=== PATIENT | male | born 1955 | race Caucasian/White ===

== ENCOUNTER 2021-11-29 09:07 | Outpatient (CLI) | payer MEDICARE, OTHER, SELFPAY ==
--- NOTE | 2021-11-29 09:20 | RAD_ITS ---
STUDY: XR Chest 2 Views 11/29/2021 9:24 AM REASON FOR EXAM: Male, 66 years old. PREOP COMPARISON: None TECHNIQUE: XR Chest 2 Views FINDINGS: There is no demonstrated pleural abnormality. Normal heart size. Normal mediastinum. Normal dmitri. Prominent appearing increased interstitial lung markings. Normal visualized pulmonary arteries. There is atherosclerotic calcification of the aortic arch with tortuosity. There are diffuse degenerative changes of the visualized thoracic spine. There is degenerative osteoarthritis of the bilateral shoulders. There is no demonstrated abnormality of the visualized soft tissue structures of the upper abdomen. RAD/Chest PA and Lateral IMPRESSION: There are no acute findings. Electronically Signed: Geovani Heller MD at 16:49 EDT ,
== END 2021-11-29 23:59 | disposition home or self-care (01) ==
LOC: RAD 09:08
PROVIDERS: PCP Nurse Practitioner Primary Care; Referring Provider Orthopaedic Surgery; Visit Provider Orthopaedic Surgery
DX: Z01.811 Encounter for preprocedural respiratory examination (principal)
CPT/HCPCS: 71046

== ENCOUNTER 2021-12-02 11:25 | Day surgery (SDC) | payer MEDICARE, OTHER, SELFPAY ==
--- NOTE | 2021-11-22 22:19 | PCM.HP.BLA ---
History and Physical History and Physical [facility] Patient Name: Angel Nicole : 1955 From: ANGELO MORGAN PA-C DATE OF SURGERY: 12/02/2021 SCHEDULED PROCEDURE: Lumbar 4 laminectomy/decompression HISTORY OF PRESENT ILLNESS: Preoperative history and physical exam was performed on November 22, 2021. This is a 66-year-old male who has had ongoing pain for over 15 years. He states it is been progressively been getting worse over the past 1-2 years. Patient has increased pain in the lumbar sacral region worse with activity and improved with rest. He gets paresthesias radiating into bilateral lower extremities. He denies any previous history of back surgeries or injuries. He has not had any previous injections. He denies any loss of bowel or bladder control. He has tried physical therapy and chiropractic treatments with no relief. He has tried home exercises without relief. Patient has tried nonsteroidal anti-inflammatory with minimal relief. He has been through MRI of the lumbar spine with lumbar degenerative disc disease and stenosis. There are degenerative changes at multiple levels but most severe at L4-L5. His symptoms are now beginning to affect his normal activities of daily living. After failing conservative measures and discussing all treatment options with Dr. Angel Blum, the patient would like to proceed with a lumbar 4 laminectomy/decompression. Patient currently denies any chest pain, shortness of breath, fevers chills or recent infections. Patient has had surgical clearance from the primary care provider Marycruz Feldman and Dr. Szymanski. Patient does have previous history of lung cancer which is in remission. Has medical history pertinent for chronic obstructive pulmonary disease and thyroid disease. REVIEW OF SYSTEMS: ROS: Const: Denies change in appetite, fever and weight change. CV: Denies chest pain, heart murmur and irregular heartbeat. Resp: Reports cough and shortness of breath, but denies pneumonia, tuberculosis and wheezing. GI: Reports dysphagia, but denies constipation, diarrhea, heartburn, nausea, rectal itching, bloody stools and vomiting. : Denies incontinence. Musculo: Reports trouble walking, but denies leg swelling, pain and weakness. Skin: Denies Raynaud's, history of shingles and tattoo. Neuro: Reports numbness/tingling but denies ambulatory dysfunction, dizziness and tremor. Psych: Reports insomnia, but denies anxiety and stress. Gianni/Lymph: Denies anemia, bleeding/bruising tendency and past transfusion. Reviewed, no changes. 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 SOCIAL HISTORY: SH: Marital: .Occupation: Retired.Work Status: Retired.Hand Dominance: Right-handed. Personal Habits: Cigarette Use: Patient was a cigarette smoker, current status is unknown.Smokeless Tobacco: Never Used Smokeless Tobacco.E-Cigarette Use: Never used.Alcohol: Weekly use.Drug Use: Denies Use.Enjoy Exercising: Never Exercises. Reviewed, no changes. VITALS: Ht: 67.8 Wt: 207lb 2oz Wt k.952 BMI: 31.7 BP: 116/72 Pulse: 99 Resp: 20 T: 97.4 T: 36.3C Pain Level: 5 O2SatR: 98 ALLERGIES: No Known Drug Allergy MEDICATIONS: Oxycodone HCL 5 mg 1-2 tab by mouth every 6 hours, Levothyroxine Sodium 50 mcg 1po qday, Advair Diskus 250-50 mcg/Dose 1 puff twice daily, Albuterol Mdi 90 mcg/Act 1 puff by mouth daily, Multi Vitamin take 1 tablet by mouth once daily., Proair Digihaler 108 (90 Base) mcg/Act as needed PRE-OP EXAM: General appearance:NORMAL Other: Eyes: Conjunctivae and lids: NORMAL Pupils: ERR Ears, Nose, Mouth, and Throat: NORMAL Other: Inspection of lips, teeth and gums: NORMAL Other: Neck: Examination of neck: no masses noted. Respiratory: Assessment of respiratory effort: NORMAL Other: Auscultation of lungs: clear to auscultation no wheezes, rhonchi or rales. Cardiovascular: Auscultation of heart: regular rate and rhythm, no murmurs, gallops or rubs. PHYSICAL EXAMINATION: On exam patient walks with a slight limping gait. He has minimal tenderness to palpation over the lumbar paraspinals. Patient has decreased strength with toe extension and ankle plantar flexion 5-/5. Remaining strength testing 5/5. Patient does have diminished reflexes of the patella bilaterally. Achilles reflexes are diminished bilaterally. Patient does complain of numbness and tingling in bilateral lower extremities. IMAGING STUDIES: Previous MRI and x-rays of the lumbar spine reveal degenerative changes at multiple levels with associated stenosis with most severe at L4-L5. IMPRESSION: 1. Lumbar degenerative disc disease with stenosis most severe at L4-L5 2. Thyroid disease 3. Chronic obstructive pulmonary disease 4. History of lung cancer: Currently in remission PLAN: Dr. Angel Blmu did discuss and review with the patient all treatment options including surgical versus nonsurgical options. Patient does wish to proceed with the above-stated procedure. Potential risks, benefits, and complications of the procedure were discussed in detail including but not limited to , infection, nerve and blood vessel damage, persistent pain, numbness, tingling, paresthesias, blood clot, pulmonary embolism, and requirement for possible further surgery. The patient expressed full understanding and has no further questions for the doctor. Patient does agree to proceed with the above-stated procedure and has signed the surgery consent form. We discussed the current risks associated with COVID 19. This does include the risk of exposure while in the hospital. Patient was reassured local hospitals have low infection rates and are taking all necessary precautions to avoid exposure to patients. In addition, we discussed strategies that can be used to help limit exposure including those that limit the patient's time in the hospital. Also using strategies to limit the patient's need for continued inpatient services after being discharged from the hospital. Patient was notified that we will need to comply with any screening or testing the hospital wishes to perform or that surgery may be delayed for any positive results. Patient denies any previous history of DVT or pulmonary embolism. We discussed postoperative course of treatment in which there'll be no repetitive bending, twisting or lifting greater than 5 pounds for 3 weeks postoperatively. Patient will follow postoperatively with Dr. Angel Blum 3 weeks. Plan will be to also begin physical therapy after 3 weeks. Discussed with the patient no use of nonsteroidal anti-inflammatories preoperatively 5 days before surgery and postoperatively 3 weeks. This dictation was created using voice recognition software. Phonetic and/or grammatical errors may exist. ___ I have re-examined the patient. There are no clinical changes since date of exam. ___ See progress notes for changes. ___ Dictated on admission Date: Time: Signature:
[2021-11-25 09:45] LABS: Prothrombin Time (Protime)PT. 12.2 SECONDS (11.7-14.9)
[2021-11-25 09:46] LABS: Partial Thromboplast Time 26.7 Seconds (24.1-36.2)
[2021-11-25 10:12] LABS: Thyroid Stim Hormone (TSH) 2.39 uIU/mL (0.358-3.74)
[2021-12-02] VITALS (8 sets, daily range): BP systolic 113–136; BP diastolic 83–98; PULSE 70–117; RESP 10–18; TEMP 36.2–36.4; O2SAT 90–97; BMI 30.8
[2021-12-02] MEDS: Lactated Ringers 1,000 ML 15 ML IV ×2 (11:50→16:50)
--- NOTE | 2021-12-02 13:58 | OP.PCM_ITS ---
Problems Associated Problem List Diagnoses (1) Lumbar stenosis: Report of Operation Date of Procedure: 12/02/21 Pre-Operative Diagnosis: 1. Lumbar stenosis L4-5 with spondylosis 2. Lumbar degenerative disc disease L4-5 Post-Operative Diagnosis: 1. Lumbar stenosis L4-5 with spondylosis 2. Lumbar degenerative disc disease L4-5 Surgery/Procedure Performed:: 1. L4 laminectomy decompression 2. L4-5 bilateral foraminotomies, decompression of nerve roots Description of Surgical Findings:: The patient is a 66-year-old male with intractable back and leg pain. Image studies confirm the above diagnoses. He has failed conservative treatment to include medication, physical therapy and injections. The patient opted for operative intervention understanding the risk to include but not limited to infection, bleeding, damage to nerves arteries and veins, possibility of spinal fluid leak, continued pain, need for further surgery, deep vein thrombosis, pulmonary embolism, heart attack, risk of stroke or The patient was identified in the preoperative holding area. There he received preoperative IV antibiotics, Ancef, and was then transferred to the operative suite. Once in the operative suite after general endotracheal anesthesia was established, the patient was transferred to the [place] operating table in the prone position. All bony prominences were padded accordingly. The lumbar spine was prepped and draped in a standard surgical fashion. Bear hugger's were not turned on until the drapes were placed and sealed with Ioban. A midline incision was made and taken to the lumbodorsal fascia. The fascia was divided and subperiosteal dissection was taken down to the level of the bilateral L4-5 facet joints. Deep retractors were placed. A bone scalpel was used to make cuts in the lamina at L4 and then a series of rongeurs and Kerrisons was used removing the spinous process and lamina at L4. Then bilateral foraminotomies were performed decompressing the bilateral nerve roots. The incision was then thoroughly irrigated. Tisseel was placed over the dura as a hemostatic agent. The fascia was closed with #1 Vicryl, subcutaneous with 2-0 Vicryl, and skin with 2-0 nylon. A sterile dressing was applied with 4 x 4's ABD and tape. Sponge instrument needle counts were correct at the end of the case. The patient was extubated and taken to the PACU without incident. Surgeon: Angel Blum Type of Anesthesia: General Drains: None Estimated Blood Loss (mL): 10 cc Fluids Replaced: 1000 cc Grafts/Implants Used: None Complications None Admit VTE Documentation VTE Present on Admission: No
--- NOTE | 2021-12-02 13:58 | PCM.PN.ORT ---
Subjective Subjective The patient was seen postoperatively in the PACU. He is lying in bed resting comfortably. His pain is controlled. He denies any complaints including numbness tingling or weakness Objective Data Objective Data Vital Signs: Vital Signs Temp Pulse Resp BP Pulse Ox 97.4 F L 117 H 18 117/90 H 96 12/02/21 12:03 12/02/21 12:03 12/02/21 12:03 12/02/21 12:03 12/02/21 12:03 Oxygen Delivery Method Room Air Weight: 202 lb 9.677 oz Body Mass Index (BMI) 30.8 Physical Exam Const alert, oriented x3 and no apparent distress General Appearance: cooperative and comfortable HEENT normocephalic and head/scalp atraumatic Eyes EOMs intact bilaterally and conjunctivae normal Neck full ROM General: normal visual inspection Chest inspection of chest normal and palpation of chest normal Resp normal respiratory effort and normal air movement Cardio regular rate, regular rhythm and peripheral pulses 2+ throughout GI soft to palpation, non-tender and non-distended Back/Spine Back/Spine Narrative: Dressing clean dry and intact Cervical Spine: cervical ROM normal Thoracic Spine / Upper Back: normal to inspection Lumbar Spine / Lower Back: normal to inspection Extremity normal to inspection, full ROM, normal capillary refill, no clubbing, cyanosis or edema and no calf tenderness Peripheral Pulses: Yes pulses 2+ throughout Skin no rashes or lesions noted General Skin Exam: no breakdown Neuro oriented x3, CN's II-XII intact bilaterally, moves all extremities, no focal motor deficits, no sensory deficits noted and deep tendon reflexes 2+ bilaterally Motor Exam: strength 5/5 throughout and muscle tone normal throughout Assessment & Plan Assessment/Plan (1) Lumbar stenosis: PLAN: Okay to discharge home See discharge instructions Follow-up with Dr. Blum in 3 weeks for suture removal
[2021-12-02] MEDS: Cefazolin 2 GM in 0.9% Normal Saline 100 ML IV (14:31)
--- NOTE | 2021-12-02 14:55 | RAD_ITS ---
STUDY: INTRAOPERATIVE FLUOROSCOPY TECHNIQUE: The examination was performed with referring physician in attendance. Under fluoroscopic observation, fluoroscopic images were obtained. Radiologist was not present for the study. Radiologist did not perform the procedure. This dictation is for documentation of the radiation dosage only. There is no interpretation of the images. TOTAL NUMBER OF IMAGES: 1 COMPARISON: None RADIATION DOSE: 10.8 mGy FLUOROSCOPY TIME: 7.5 seconds REASON FOR EXAM: L4 LAMINECTOMY, DECOMPRESSION Male, 66 years old. FINDINGS: Surgical instrument points at the level of L3-4 RAD/Lumbar Spine 2 or 3 Views IMPRESSION: Fluoroscopic assistance images were obtained. Dictation for documentation purposes only. Electronically Signed: Geovani Heller MD at 18:43 EDT ,
[2021-12-02] MEDS: THROMBIN (RECOMBINANT) 20,000 UNIT VIAL 20000 UNIT TOPICAL (16:44)
== END 2021-12-02 23:59 | disposition home or self-care (01) ==
LOC: SDC 11:25 → AC 11:28
PROVIDERS: PCP Nurse Practitioner Primary Care; Referring Provider Orthopaedic Surgery; Visit Provider Orthopaedic Surgery
PROC: (CPT 63030; principal; 2021-12-02 13:00)
DX: M48.061 Spinal stenosis, lumbar region without neurogenic claudication (principal); J44.9 Chronic obstructive pulmonary disease, unspecified; M51.36 Other intervertebral disc degeneration, lumbar region; E07.9 Disorder of thyroid, unspecified; Z85.118 Personal history of other malignant neoplasm of bronchus and lung; Z79.890 Hormone replacement therapy; Z79.899 Other long term (current) drug therapy; M19.90 Unspecified osteoarthritis, unspecified site; M47.816 Spondylosis without myelopathy or radiculopathy, lumbar region; Z86.2 Personal history of diseases of the blood and blood-forming organs and certain disorders involving the immune mechanism
CPT/HCPCS: 63047; 00630; 36415; 72100; 76000; 84443; 85610; 85730; J7120

== ENCOUNTER → 2023-11-27 | Outpatient (CLI) | payer MEDICARE, OTHER, SELFPAY ==
--- NOTE | 2023-11-27 08:08 | EKG12_ITS ---
Test Reason : PREOP Blood Pressure : / mmHG Vent. Rate : 101 BPM Atrial Rate : 101 BPM P-R Int : 168 ms QRS Dur : 096 ms QT Int : 386 ms P-R-T Axes : 065 011 047 degrees QTc Int : 500 ms Sinus tachycardia with frequent Premature ventricular complexes Otherwise normal ECG Confirmed by Chang Gregory ([id number]), medical editor BONY YOST ([id number]) on 11/27/2023 11:05:46 AM Referred By: Angel Blum Confirmed By:Chang Gregory
--- NOTE | 2023-11-27 08:08 | RAD_ITS ---
EXAM: XR CHEST, 2 VIEWS CLINICAL INDICATION: PREOP TECHNIQUE: Frontal and lateral views of the chest. COMPARISON: XR Chest dated 11/29/2021 FINDINGS: LUNGS AND PLEURAL SPACES: Hyperinflation suggesting emphysema. No pulmonary consolidation. No pleural effusion or pneumothorax. HEART: Normal heart size. MEDIASTINUM: No mediastinal or hilar mass. BONES/JOINTS: No acute abnormality. RAD/Chest PA and Lateral IMPRESSION: No acute cardiopulmonary abnormality. COPD. No interval change. Electronically Signed: Joe Herrera MD at 9:14 EDT ,
[2023-11-27 08:11] LABS: Absolute Lymphocyte Count 1.67 X10^3/uL (0.83-4.51); Absolute Neutrophil Count 5.4 X10^3/uL (2.0-7.7); Basophil# 0.05 X10^3/uL; Basophil% 0.6 % (0-1); Eosinophil# 0.26 X10^3/uL; Eosinophils% 3.3 % (0-5); Hematocrit 42.9 % (40-54); Hemoglobin 13.8 g/dL (13.0-16.5); Lymphocyte # 1.67 X10^3/ul (0.83-4.51); Lymphocyte % 20.9 % (19-41); Mean Corp Hgb Conc 32.2 g/dL (32-36); Mean Corpuscular Hgb 29.2 pg (27.0-32.0); Mean Corpuscular Volume 90.9 fL (80-94); Mean Platelet Vol. 9.9 fl (6.2-12.0); Monocyte# 0.58 X10^3/uL; Monocyte% 7.3 % (0-10); NRBC Flagged by Analyzer 0 % (0-5); Neutrophil # 5.38 X10^3/uL (2.7-7.7); Neutrophil % 67.4 % (47-70); Platelet Count 269 K/mm3 (150-450); Red Blood Count 4.72 M/mm3 (4.6-6.2)
[2023-11-27 08:22] LABS: International Normalized Ratio 0.9; Prothrombin Time (Protime)PT. 12.4 SECONDS (11.7-14.9)
[2023-11-27 08:23] LABS: Partial Thromboplast Time 26.3 Seconds (24.1-36.2)
[2023-11-27 08:43] LABS: Anion Gap 7 (5-15); BUN 26 mg/dL (7-18); BUN/Creat Ratio 25.2 RATIO (10-20); Calcium,Total 8.7 mg/dL (8.5-10.1); Chloride 108 mmol/L (98-107); Creatinine, Serum 1.03 mg/dL (0.70-1.30); EST Glomerular Filtration Rate 76 mL/min (>60); Est Glom Filt Rate - Afr Amer 92 mL/min (>60); Glucose 107 mg/dL (74-106); Potassium 3.9 mmol/L (3.5-5.1); Sodium Level 140 mmol/L (136-145)
[2023-11-27 08:57] LABS: Thyroid Stim Hormone (TSH) 3.06 uIU/mL (0.358-3.74)
== END | disposition home or self-care (01) ==
PROVIDERS: Anesthesiology; PCP Nurse Practitioner Primary Care; Referring Provider Orthopaedic Surgery; Visit Provider Orthopaedic Surgery
DX: Z01.818 Encounter for other preprocedural examination (principal); Z01.811 Encounter for preprocedural respiratory examination; Z01.810 Encounter for preprocedural cardiovascular examination
CPT/HCPCS: 36415; 71046; 80048; 84443; 85025; 85610; 85730; 93005

== ENCOUNTER 2023-12-07 07:18 | Observation (INO) | payer MEDICARE, OTHER, SELFPAY ==
[2023-12-07] VITALS (18 sets, daily range): BP systolic 96–154; BP diastolic 49–94; PULSE 77–110; RESP 16–20; TEMP 36.1–36.8; O2SAT 89–99; BMI 31.5
[2023-12-07] MEDS: Lactated Ringers 1,000 ML 15 ML IV (06:25)
[2023-12-07] MEDS: Ipratropium/Albuterol Sulfate 3 ML AMPUL.NEB INHALATION ×2 (06:37→17:27)
--- NOTE | 2023-12-07 07:06 | PCM.OPRPT ---
Report of Operation Date of Procedure: 12/07/23 Description of Surgical Findings:: REPORT OF OPERATION PREOPERATIVE DIAGNOSES: 1. Lumbar stenosis, spondylosis. 2. Chronic back pain. 3. Postlaminectomy syndrome POSTOPERATIVE DIAGNOSES: 1. Lumbar stenosis, spondylosis. 2. Chronic back pain. 3. Postlaminectomy syndrome PROCEDURE PERFORMED: 1. T9-10 partial bilateral laminectomies. 2. Dorsal column stimulator paddle lead placement. 3. Neuro monitoring bilateral upper and lower extremities 4. One hour of complex programming postoperatively. STATEMENT OF MEDICAL NECESSITY: This patient is a 68-year-old male with intractable back and leg pain. The patient has opted for treatment of operative intervention, understanding the risks to include infection, bleeding, damage to nerves, arteries and veins, possibility of continued pain, paralysis, need for additional surgery, pulmonary embolism, heart attack, stroke, or . DESCRIPTION OF PROCEDURE: The patient was identified in the preoperative holding area. There, the patient received the preoperative IV antibotics and then transferred to the operating suite. Once in the operating suite, after general endotracheal anesthesia was established, the patient was transferred to the [place] operating table in the prone position. All bony prominences were padded accordingly. The thoracolumbar spine was prepped and draped in standard surgical fashion. Incision was made over the thoracolumbar spine. An incision was centered over the T9-10 interlaminar space, taken down to the thoracic fascia. It was then divided and subperiosteal dissection was taken down to the level of the facet joints. Partial bilateral laminectomies were performed at the T9-10 interspace, with part of the inferior lamina of T9, and superior lamina of T10. At this point the paddle lead was placed spanning from T8 inferiorly. It was then anchored to the fascia using standard anchors with silk suture. A second incision was made over the right posterior iliolumbar region as a battery pocket. Wires from the stimulator were then passed subcutaneously with a passing device to the battery pocket. Extension wires were then connected and passed percutaneously at the skin in the left posterior iliolumbar region. Both incisions were then irrigated and closed with #1 vicryl for the fascia, 2-0 vicryl for subcutaneous, and 2-0 nylon for skin. Sterile dressing was applied with 4 x 4, ABD, and tape. Sponge, instrument, and needle counts were correct at the end of the case. Neuromonitoring was maintained at baseline throughout the duration of the case. The patient was extubated, taken to PACU without incident. Then one hour was spent with complex programming when the patient recovered Surgeon: Angel Blum Type of Anesthesia: General Estimated Blood Loss (mL): 20 cc Fluids Replaced: 1800 cc Grafts/Implants Used: [employer] Complications None Admit VTE Documentation VTE Present on Admission: No
--- NOTE | 2023-12-07 07:10 | PN.ORTHO_ITS ---
Subjective Subjective Seen and examined postop. Resting comfortably. Pain controlled. No complaints Objective Data Objective Data Vital Signs: Vital Signs Temp Pulse Resp BP Pulse Ox O2 Del Method 97.7 F L 100 16 128/86 H 95 Room Air 12/07/23 06:18 12/07/23 06:18 12/07/23 06:18 12/07/23 06:18 12/07/23 06:18 12/07/23 06:18 Oxygen Delivery Method Room Air Weight: 207 lb 3.752 oz Body Mass Index (BMI) 31.5 Physical Exam Const alert, oriented x3 and no apparent distress General Appearance: cooperative, comfortable and well kempt HEENT normocephalic and head/scalp atraumatic Eyes EOMs intact bilaterally and conjunctivae normal Neck full ROM General: normal visual inspection Chest inspection of chest normal and palpation of chest normal Resp normal respiratory effort and normal air movement Cardio regular rate, regular rhythm and peripheral pulses 2+ throughout GI soft to palpation, non-tender and non-distended Back/Spine Back/Spine Narrative: Dressings clean dry and intact Cervical Spine: cervical ROM normal Thoracic Spine / Upper Back: normal to inspection Lumbar Spine / Lower Back: normal to inspection Extremity normal to inspection, full ROM, normal capillary refill, no clubbing, cyanosis or edema and no calf tenderness Skin no rashes or lesions noted General Skin Exam: no breakdown Neuro oriented x3, CN's II-XII intact bilaterally, moves all extremities, no focal motor deficits, no sensory deficits noted and deep tendon reflexes 2+ eleonora aterally Motor Exam: muscle tone normal throughout Assessment & Plan Assessment/Plan (1) Lumbar spondylosis: PLAN: Okay to admit for observation See orders Discharge planning likely home tomorrow
--- NOTE | 2023-12-07 07:11 | PCM.DC.SUM ---
Providers Date of Admission: 12/07/23 Primary Care Physician: DILLON JESSICA Reason For Visit: Insertion, Spinal Cord Stim,Trial Diagnosis Discharge Diagnosis (1) Lumbar spondylosis: Status: Acute Code(s): M47.816 - Spondylosis without myelopathy or radiculopathy, lumbar region Plan: Okay to admit for observation See orders Discharge planning likely home tomorrow Medications at Discharge Home Medications multivitamin 1 tab PO DAILY 11/22/21 albuterol sulfate 90 mcg/actuation aerosol inhaler (ProAir HFA) 1 inh inhalation Q4H PRN PRN shortness of breath or wheezing 11/23/23 atorvastatin 40 mg tablet 40 mg PO DAILY 11/23/23 fluticasone fur. 100 mcg-umeclid 62.5 mcg-vilant 25 mcg inhalat.powder (Trelegy Ellipta) 1 ea inhalation DAILY 11/23/23 levothyroxine 75 mcg tablet 75 mcg PO DAILY 11/23/23 hydrocodone-acetaminophen 5-325mg 5mg-325mg 1 tab PO Q6H 7 days #28 tabs 12/07/23 Hospital Course Operations - (T9-10 laminectomy with implantation of spinal cord stimulator trial lead) Summary of Care Provided Minutes Spent on Discharge: 15 Hospital Course: The patient is a 68-year-old male who underwent T9-10 laminectomy with implantation of spinal cord stimulator trial lead on 12/07/2023. He was subsequently admitted. The hospitalist was consulted for medical management. The patient progressed well. His pain was controlled and he was mobilizing well. No significant medical issues were reported. He was subsequently discharged home on 12/08/2023 to follow-up with Dr. Blum in 1 week Physical Exam Const alert, oriented x3 and no apparent distress General Appearance: cooperative, comfortable and well kempt Neck full ROM General: normal visual inspection Chest inspection of chest normal and palpation of chest normal Resp normal respiratory effort and normal air movement Effort and Inspection: able to speak in complete sentences Cardio regular rate, regular rhythm and peripheral pulses 2+ throughout GI soft to palpation, non-tender and non-distended Back/Spine Back/Spine Narrative: Dressings clean dry and intact Cervical Spine: cervical ROM normal Thoracic Spine / Upper Back: normal to inspection Lumbar Spine / Lower Back: normal to inspection Extremity normal to inspection, full ROM, normal capillary refill, no clubbing, cyanosis or edema and no calf tenderness Skin no rashes or lesions noted General Skin Exam: no breakdown Neuro oriented x3, CN's II-XII intact bilaterally, moves all extremities, no focal motor deficits, no sensory deficits noted and deep tendon reflexes 2+ bilaterally Motor Exam: strength 5/5 throughout and muscle tone normal throughout Weight / BMI Weight Weight: 207 lb 3.752 oz Body Mass Index (BMI) 31.5 D/C Instructions Discharge Diet: No restrictions Additional Activity Instructions: No repetitive bending twisting or lifting greater than 5 pounds Call your doctor if your incision/area has: Continuous Slow Oozing, Sudden Increased Bleeding, Increased Pain/ Swelling, Increased Redness, Foul Smelling Discharge and Swelling at the incision site Call your doctor if you observe: Fever of 101 or Higher, Coldness, Increased Pain, Numbness or Tingling, Change in Color, Inability to urinate, Inability to have a bowel movement, Using more than 1 pad per hour, Shortness of breath, Dizziness, Fainting spells, Swelling in the ankles, Chest pain, Prolonged hiccupping, Increased palpitations (irregular heartbeat), Calf discomfort and Uncontrolled pain Additional Dressing/Incision Instructions: Keep dressing clean dry and intact. Do not remove dressing. Reinforce dressing as needed Additional Instructions: 1. During your procedure, you received sedation through your IV. Please follow these instructions for the next 24 hours: Do not drive a motor vehicle, do not drink any alcoholic beverages, and do not sign any legal documents or make personal or business decisions. A responsible adult should stay with you at least 6 hours after the procedure. 2. Keep your surgical site/incision clean and the dressing dry and intact. Do not remove dressing. You may use an ice pack at the surgical site to reduce any swelling or discomfort. 3. Monitor the incision site for any signs or symptoms of infection. Watch for redness, excessive swelling or drainage, or continued pain at the incision site after 3 days. Contact your physician immediately for a fever, chills or a temperature of 101.5? F or greater. 4. Take your medication exactly as prescribed by your physician. Do not attempt to wean yourself off any of your medications even though your pain is improving. This process needs to be carefully monitored by your doctor. Take any antibiotics prescribed exactly as directed and until they are gone. 5. Avoid stretching, bending, pulling, twisting or any sudden movements. Do not bend or twist at the waist. 6. No lifting greater than 5 pounds. 7. Do not operate a motor vehicle, equipment or a power tool while taking pain medication 8. Do not have any manipulation done by a chiropractor or any other physician without first consulting with the surgeon 9. Please contact our office if you are even scheduled for a CT scan or an MRI. 10. Please call us if you have any questions, problems or concerns. Please Follow Up With: Angel Blum, Meaningful Use Info Meaningful Use Meaningful Use Diagnoses (Choose all that apply): None applicable Ischemic Stroke Statin Dosing Therapy Reference: STATIN DOSE THERAPY REFERENCE: * Patients > 75 years receive moderate or high dose statin therapy. * Patients 75 years or YOUNGER should receive HIGH intensity statin dose unless contraindicated. You will be required to document reason for non-treatment if statin daily dose does not meet guidelines. HIGH DOSE STATIN THERAPY DAILY Atorvastatin > than or = to 40 mg Rosuvastatin > than or = to 20 mg Amlodipine + Atorvastatin > than or = to 2.5/40 mg Ezetimibe + Simvastatin 10/80 mg Simvastatin 80mg Discharge Plan Admission Admit Date/Time: 12/07/23 07:18 Attending Provider: Angel Blum Primary Care Provider: BHAVYA MONROY Consulting Providers: Fredy Villegas Instructions Additional Instructions / Restrictions: 1. During your procedure, you received sedation through your IV. Please follow these instructions for the next 24 hours: Do not drive a motor vehicle, do not drink any alcoholic beverages, and do not sign any legal documents or make personal or business decisions. A responsible adult should stay with you at least 6 hours after the procedure. 2. Keep your surgical site/incision clean and the dressing dry and intact. Do not remove dressing. You may use an ice pack at the surgical site to reduce any swelling or discomfort. 3. Monitor the incision site for any signs or symptoms of infection. Watch for redness, excessive swelling or drainage, or continued pain at the incision site after 3 days. Contact your physician immediately for a fever, chills or a temperature of 101.5? F or greater. 4. Take your medication exactly as prescribed by your physician. Do not attempt to wean yourself off any of your medications even though your pain is improving. This process needs to be carefully monitored by your doctor. Take any antibiotics prescribed exactly as directed and until they are gone. 5. Avoid stretching, bending, pulling, twisting or any sudden movements. Do not bend or twist at the waist. 6. No lifting greater than 5 pounds. 7. Do not operate a motor vehicle, equipment or a power tool while taking pain medication 8. Do not have any manipulation done by a chiropractor or any other physician without first consulting with the surgeon 9. Please contact our office if you are even scheduled for a CT scan or an MRI. 10. Please call us if you have any questions, problems or concerns. Discharge Orders/Prescriptions Prescriptions: New hydrocodone-acetaminophen 5-325 mg tablet 1 tab PO Q6H 7 Days Qty: 28 0RF Continued multivitamin Tablet 1 tab PO DAILY levothyroxine 75 mcg tablet 75 mcg PO DAILY Trelegy Ellipta 100-62.5-25 mcg blister with device 1 ea inhalation DAILY atorvastatin 40 mg tablet 40 mg PO DAILY Patient Comments: pt states needs refill albuterol sulfate [ProAir HFA] 90 mcg/actuation HFA aerosol inhaler 1 inh inhalation Q4H PRN PRN (Reason: shortness of breath or wheezing) Referrals / Follow Up: Angel Blum DO [Med Staff - Active Staff] - Naomi Feldman NP, PROGRAM EVALUATION CONSULTANT-C [Non-Staff] - Disposition Disposition (needs filled in before D/C Order can be placed): Home, Self Care
[2023-12-07] MEDS: Cefazolin 2 GM in 0.9% Normal Saline (100mL Bag) 100 ML IV (07:23)
[2023-12-07] MEDS: Cefazolin 1 GM/50 ML BAG IV ×3 (07:23→22:32)
--- NOTE | 2023-12-07 07:40 | RAD_ITS ---
PROCEDURE: Spinal cord stimulator insertion. DATE OF EXAMINATION: December 07, 2023 INDICATION: Male, 68 years old. Back pain. FLUOROSCOPY TIME (if supplied): (36.2 seconds) minutes/seconds. 11.33 mGy. RAD/Thoracic Spine 2 Views IMPRESSION: Intraoperative imaging provided for percutaneous spinal cord stimulator placement. Electronically Signed: Chaitanya Mendoza MD at 10:55 EDT ,
[2023-12-07] MEDS: THROMBIN (RECOMBINANT) 20,000 UNIT VIAL 20000 UNIT TOPICAL (08:15)
[2023-12-07] MEDS: Bupivacaine 0.25% 30 ML Vial (09:25)
[2023-12-07] MEDS: Lactated Ringers 1,000 ML 100 ML IV ×2 (12:00→21:43)
[2023-12-07] MEDS: oxyCODONE 5 MG Tablet PO ×2 (12:29→17:12)
[2023-12-07] MEDS: Acetaminophen 500 MG Tablet 1000 MG PO ×2 (15:05→21:14)
--- NOTE | 2023-12-07 16:40 | PCM.PN.HOSP ---
Reason for Visit Reason for Visit: Diagnoses Spondylosis without myelopathy or radiculopathy, lumbar region (12/07/23) Encounter for other preprocedural examination (12/07/23) Subjective Subjective Patient with no postoperative events transition now from PACU to medical surgical floor. He notes tolerating clear liquids and some cookies in the PACU without issue. He notes that if he is not moving his pain is currently 0 out of 10 but if he moves it is more dull aching throbbing can be 3 out of 10 in severity. He denies any lower extremity numbness or tingling and denies any shooting pains. He is moving both extremities without difficulty he notes. Patient denies fevers, chills, nausea, emesis, abdominal pain, chest pain or dyspnea. Objective Data Objective Data Vital Signs: Vital Signs Temp Pulse Resp BP Pulse Ox O2 Del Method O2 Flow Rate 97.7 F L 98 20 H 135/94 H 93 Nasal Cannula 2 12/07/23 16:06 12/07/23 16:06 12/07/23 16:06 12/07/23 16:06 12/07/23 16:06 12/07/23 16:06 12/07/23 16:06 Oxygen Flow Rate (L/min) 2 Oxygen Delivery Method Nasal Cannula Weight: 207 lb 3.752 oz Body Mass Index (BMI) 31.5 Intake & Output: Intake and Output for Last 24 Hours 12/05/23 12/06/23 12/07/23 23:59 23:59 23:59 Intake Total 2210 / 2210 Balance 2210 / 2210 Radiography Diagnostic Testing: Radiology Impression Thoracic Spine X-Ray 12/07/23 07:40 IMPRESSION: Intraoperative imaging provided for percutaneous spinal cord stimulator placement. Electronically Signed: Chaitanya Mendoza MD at 10:55 EDT , Physical Exam Narrative Physical Examination: General: Awake, alert, oriented x 3 and cooperative, seated upright in MS bed, fatigued but otherwise no acute distress. Skin: Normal color, normal turgor, no icterus, no cyanosis except status post recent OR with lumbar surgery, dressing in place no drainage. HEENT: AT/NC, EOMI, PERRLA, mildly dry MM. Lungs: Mildly diminished, greater bases, some upper airway sounds but no wheezing noted on auscultation, no rales or rhonchi. Heart: Mildly tachycardic with regular rhythm; no gallop, rub audible. Abdomen: Soft, obese, NTTP, ND, distant mildly hyperactive BS. Extremities: No cyanosis, no clubbing, mild bilateral ankle not markedly pitting edema. Neurological: Patient awake, alert, oriented as noted, cognitive function intact; pupils equally reactive to light and accommodation, cranial nerves grossly normal, moving all 4 extremities although limited by recent back surgery, no focal deficits, sensation intact, strength moderately to severely global decreased given recent OR but improving. Psychiatric: Affect appears fatigued otherwise normal, no acute evidence of depressive or anxiety feelings. Assessment & Plan Assessment/Plan (1) Lumbar spondylosis: PLAN: Plan The patient is a 68 y/o M w/ PMHx: COPD, Tobacco use, OA, Hypothyroidism, HLD, Chronic back pain who presents to the [facility] on 12/07/23 with history of lumbar stenosis with spondylosis with chronic back pain with postlaminectomy syndrome for planned T9-10 partial bilateral laminectomy, dorsal column stimulator paddle lead placement per Dr. Blum. #1. Lumbar stenosis with spondylosis with chronic back pain with postlaminectomy syndrome: Failed conservative therapies and treatments, admitted per Dr. Blum status post T9-10 partial bilateral laminectomy, dorsal column stimulator paddle lead placement, post-operative pain management, bowel regimen, DVT Prophylaxis, PT/OT/CM per Orthopedic surgery discretion. #2. Chronic COPD: Will maintain on oxygen with wean as tolerated to room air, continue ATC duonebs, PRN albuterol, HOB, IS parameters. Currently also listed as being on twice daily budesonide therapy. At this point could consider just single agent. #3. Hypothyroidism: We will continue patient on levothyroxine regimen. #4. Hyperlipidemia: We will continue patient on statin therapy. #5. Obesity: Weight loss and lifestyle changes encouraged. #6. Tobacco Abuse: Encouraged cessation, inpatient consultation per RT, NR if desired. #7. DVT prophylaxis: SCDs, chemoprophylaxis per surgery discretion given recent OR. Charges/Coding Visit Charges Inpatient E&M: 48870 Subs Hosp L3
[2023-12-07] MEDS: Budesonide Respules 0.5 MG/2 ML AMPUL.NEB. INHALATION (17:27)
[2023-12-07] MEDS: 0.9% Normal Saline (500mL Bag) 500 ML 999 ML IV ×2 (18:39→21:10)
[2023-12-08 03:00] VITALS: BP 155/91; PULSE 110; RESP 20; TEMP 37.3; O2SAT 96
[2023-12-08] MEDS: Ondansetron 4 MG/2 ML Vial IV (04:18)
[2023-12-08] MEDS: Acetaminophen 500 MG Tablet 1000 MG PO (05:48)
[2023-12-08] MEDS: Levothyroxine 75 MCG Tablet PO (05:48)
[2023-12-08] MEDS: Ipratropium/Albuterol Sulfate 3 ML AMPUL.NEB INHALATION (07:23)
[2023-12-08] MEDS: Budesonide Respules 0.5 MG/2 ML AMPUL.NEB. INHALATION (07:23)
[2023-12-08 07:25] VITALS: PULSE 105; RESP 19; O2SAT 95
[2023-12-08 08:06] VITALS: BP 139/81; PULSE 121; RESP 18; TEMP 37.3; O2SAT 96
--- NOTE | 2023-12-08 09:18 | CASEMGMT ---
Addendum entered by Jennifer Wayne 12/08/23 12:26: SHERMAN LOERA into pt room after speaking with therapy of today's session. Pt states he feels safe to go home. He states he is just not used to using a walker so he forgets. Pt present in room, she works but is otherwise available to assist pt. Pt denies any need for therapies at home. Pt reports smoking 1/2 pack per day of cigarettes and socially drinks alcohol on Fridays only. When asked the amount of alcohol, pt did not disclose. Pt denies any use of street or illegal drugs. Original Note: SHERMAN LOERA Assessment: Face to Face with pt for initial transition planning/care coordination assessment. SHERMAN LOERA introduced self and role at [facility], pt voices understanding and consents to assessment. Pt is A&O x4 and answers all questions appropriately at this time. Pt sitting up in chair in no distress. Care providers, pharmacy, and demographics verified/updated. Admitting Dx: insertion, spinal cord stimulator, trial PCP:Lefty Romano Specialists:robby Blum Pharmacy: [facility] Insurance: [facility], [facility] Prescription Benefit: yes LNOK: Nori Nicole, Living Arrangements: Pt lives with in a single story home with no steps to enter. Pt reports he was I in ADL's prior to surgery. Pt denies concerns at home. Transportation: Pt drives self and denies concerns with transportation. Pt will transport until he is able to drive again. DME:FWW, rollator, cane- Pt does not use AD to ambulate. Oxygen through [facility] at HS, pox HHC/SNF: Denies hx of Pt states no concerns with going home at time of dc. Noted pt needed WW and Ax2 yesterday. Pt reports this is due to pain. Will follow therapy session today. Pt states no further concerns/needs. CM to follow. Advised pt to ask CM if any further question/concerns/needs arise, voices understanding. Pt Goal: Home Plan: Home, pending therapy session today Elkin WHITAKER CM
[2023-12-08] MEDS: Atorvastatin Calcium 40 MG Tablet PO (10:14)
[2023-12-08] MEDS: Multivitamins,Therapeutic Tablet 1 TABLET PO (10:14)
--- NOTE | 2023-12-08 10:34 | PHA.DC.MC.R ---
Pharmacy [facility] Service has performed discharge medication reconciliation and counseling for this patient. 1. NORCO 5/325MG PO Q6H X 7 DAYS The patient's discharge medication list was reviewed for discrepancies and discrepancies were resolved. The patient was counseled on the following discharge medications and changes in medications for homegoing were reviewed. The Reason for Use, instructions for use, and potential side effects were reviewed for all new medications. The patient's questions regarding all of their medications were answered. The patient was able to verbally demonstrate an understanding of their discharge medications. Medications at Discharge Home Medications multivitamin 1 tab PO DAILY 11/22/21 albuterol sulfate 90 mcg/actuation aerosol inhaler (ProAir HFA) 1 inh inhalation Q4H PRN PRN shortness of breath or wheezing 11/23/23 atorvastatin 40 mg tablet 40 mg PO DAILY 11/23/23 fluticasone fur. 100 mcg-umeclid 62.5 mcg-vilant 25 mcg inhalat.powder (Trelegy Ellipta) 1 ea inhalation DAILY 11/23/23 levothyroxine 75 mcg tablet 75 mcg PO DAILY 11/23/23 hydrocodone-acetaminophen 5-325mg 5mg-325mg 1 tab PO Q6H 7 days #28 tabs 12/07/23
--- NOTE | 2023-12-08 11:01 | CASEMGMT ---
TC to therapy requesting pt be seen today before DC.
--- NOTE | 2023-12-08 11:40 | NURSING ---
pt aware we are waiting for PT consult prior to leaving-pt currently taking 2 to ambulate from bed to chair
[2023-12-08 12:00] VITALS: BP 131/89; PULSE 133; RESP 20; TEMP 36.7; O2SAT 93
--- NOTE | 2023-12-08 12:22 | PCM.PN.HOSP ---
Reason for Visit Reason for Visit: Diagnoses Spondylosis without myelopathy or radiculopathy, lumbar region (12/07/23) Encounter for other preprocedural examination (12/07/23) Subjective Subjective Having some back pain. Objective Data Objective Data Vital Signs: Vital Signs Temp Pulse Resp BP Pulse Ox O2 Del Method O2 Flow Rate 37.3 C 121 H 18 139/81 H 96 Room Air 3 12/08/23 08:06 12/08/23 08:06 12/08/23 08:06 12/08/23 08:06 12/08/23 08:06 12/08/23 08:06 12/08/23 07:25 Oxygen Flow Rate (L/min) 3 Oxygen Delivery Method Room Air Weight: 94 kg Body Mass Index (BMI) 31.5 Intake & Output: Intake and Output for Last 24 Hours 12/06/23 12/07/23 12/08/23 23:59 23:59 23:59 Intake Total 4131.67 / 4131.67 568.33 / 568.33 Output Total 1300 / 1300 Balance 4131.67 / 3231.67 -731.67 / -731.67 Physical Exam Const alert and no apparent distress HEENT head/scalp atraumatic and moist oral mucous membranes Resp normal respiratory effort, no retractions, no use of accessory muscles and clear to auscultation bilaterally Cardio regular rate, regular rhythm, S1 normal heart sound and S2 normal heart sound GI normal to inspection, nondistended, normoactive bowel sounds and soft to palpation Assessment & Plan Assessment/Plan (1) Lumbar spondylosis: PLAN: Plan Hypothyroidism: stable on levothyroxine. HLP: continue statin s/p T9-10 laminectomy, dorsal column stimulator: per ortho Medically stable for discharge. Will sign off. Call with questions. Charges/Coding Visit Charges Inpatient E&M: 47613 Subs Hosp L1
--- NOTE | 2023-12-08 12:26 | CASEMGMT ---
SHERMAN CM in to discuss SYLVESTER form with patient. RN CM explained SYLVESTER form, patient voiced understanding. Pt signed form and filed in chart. Pt provided with a copy of signed SYLVESTER form. Patient had no further questions or concerns at this time.
== END 2023-12-08 12:41 | disposition home or self-care (01) ==
LOC: SDC 15:49 → MS3 15:49
PROVIDERS: Admitting Provider Orthopaedic Surgery; PCP Nurse Practitioner Family; Referring Provider Orthopaedic Surgery; Visit Provider Orthopaedic Surgery
PROC: (CPT 63655; principal; 2023-12-07 07:00)
DX: M48.061 Spinal stenosis, lumbar region without neurogenic claudication (principal); J44.9 Chronic obstructive pulmonary disease, unspecified; M47.816 Spondylosis without myelopathy or radiculopathy, lumbar region; G89.29 Other chronic pain; M96.1 Postlaminectomy syndrome, not elsewhere classified; F17.210 Nicotine dependence, cigarettes, uncomplicated; Z79.899 Other long term (current) drug therapy; E78.5 Hyperlipidemia, unspecified; E66.9 Obesity, unspecified; E03.9 Hypothyroidism, unspecified; Z79.890 Hormone replacement therapy; Z68.31 Body mass index [BMI] 31.0-31.9, adult
CPT/HCPCS: 63650; 00630; 72070; 76000; 94640; 94668; 96361; 96365; 96366; 96375; 97162; 97530; 99221; C1778; J7040; J7120; G0378; J2405

== ENCOUNTER → 2023-12-19 | Outpatient (CLI) | payer MEDICARE, OTHER, SELFPAY | END | disposition home or self-care (01) | LOC: LABSPEC 16:06 | PROVIDERS: PCP Nurse Practitioner Family; Referring Provider Orthopaedic Surgery; Visit Provider Orthopaedic Surgery | DX: M48.061 Spinal stenosis, lumbar region without neurogenic claudication (principal) | CPT/HCPCS: 87070; 87075; 87205 ==